=== PATIENT | female | born 1980 | race African-American/Black ===

== ENCOUNTER 2016-10-12 14:51 | Emergency (ER) | payer SELFPAY ==
[2016-10-12 15:47] LABS: Bilirubin Negative (Negative); Blood, Urine Negative (Negative); Glucose, Urine (Dipstick) Negative (Negative); Ketone, Urine Trace mg/dL (Negative); Nitrite Negative (Negative); Protein, Urine (Dipstick) 30 mg/dL (Neg-Trace); Urobilinogen 0.2 mg/dL (0.2-1.0)
[2016-10-12 16:01] LABS: Bacteria/HPF Rare-Few HPF (None Seen); RBC/HPF None Seen HPF (0-3); WBC/HPF 0-3 HPF (0-3)
[2016-10-12] MEDS ORDERED: Ondansetron ODT 4 MG TAB ONE (16:05)
--- NOTE | 2016-10-12 17:10 | ERRECORD ---
[facility] EMERGENCY RECORD HPI NAUSEA/VOMITING/DIARRHEA (20:14 JLOY) CHIEF COMPLAINT: Patient presents for evaluation of nausea, Denies vomiting, Patient presents for evaluation of diarrhea, Number of times: 'many', described as watery stools, Patient presents for evaluation of Pt with UTI 3 weeks ago that resolved with batrim. Some diarrhea with the abx but the last 3 days with increased diarrhea and cramps in the left abd every time she has diarrhea. Nausea. No other symptoms. HISTORIAN: History provided by patient. LOCATION FEMALE: Symptoms are localized, most severe in the Left abd. QUALITY: Pain is dull in nature, described as cramping. TIME COURSE: Gradual onset of symptoms, There has been no change in the patient's symptoms over time, are intermittent. ASSOCIATED WITH FEMALE: Associated with recent antibiotic use, No associated chills, Associated with diarrhea, No associated fever, No associated flank pain, No associated hematemesis, No associated hematuria, Associated with nausea, No associated inability to tolerate oral intake, No associated urinary tract infection signs or symptoms, No associated vomiting. EXACERBATED BY: Patient's condition exacerbated by nothing. RELIEVED BY: Patient's condition relieved by nothing. ROS (20:15 JLOY) CONSTITUTIONAL: Historian denies chills, denies fever. ENT: Historian denies rhinorrhea, denies sore throat. RESPIRATORY: Historian denies cough, denies shortness of breath. GI: Historian reports abdominal pain, reports diarrhea, reports nausea, denies vomiting. GENITOURINARY FEMALE: Historian denies dysuria, denies frequency, denies hematuria. MUSCULOSKELETAL: Historian denies back pain. NEUROLOGIC: Historian denies dizziness, denies headache. PAST MEDICAL HISTORY MEDICAL HISTORY: No past medical history. (15:12 MCBE) FEMALE SURGICAL HISTORY: Patient's surgical history is not relevant to the management of the case, BACK SURGERY FOR SCHOLIOSIS.REVIEWED 09/21/16. (15:12 MCBE) SOCIAL HISTORY: Patient denies alcohol use, Patient denies drug use, Patient has no smoking history.REVIEWED 09/21/16. (15:12 MCBE) NOTES: Nursing records reviewed, Agree with nursing records. (20:16 JLOY) KNOWN ALLERGIES No Known Drug Allergies NONE (Unconfirmed) &a-1R&a+25V*p+0X*j9974M*c202B*c15G*c2P*p-0X&a-25V&a+1R Name: Xavi Cabrera : 1980 F36 MedRec: [id number] AcctNum: [id number] Prepared: [facility] Oct 12, 2016 20:18 by Interface Page 1 of 3 pMD [facility] EMERGENCY RECORD CURRENT MEDICATIONS No recorded medications VITAL SIGNS (15:09 MCBE) VITAL SIGNS: BP: 114/69, Pulse: 78, Resp: 18, Temp: 97.8 (Oral), Pain: 7, O2 sat: 98 on Room Air, Time: 10/12/2016 15:09. PHYSICAL EXAM (20:16 [facility]) CONSTITUTIONAL: Vital signs reviewed, Patient appears non toxic, Patient alert and oriented to person, place and time. EYES: Eye exam included findings of eyelids normal to inspection, Pupils equally round and reactive to light, Conjunctiva normal. ENT: Mouth exam normal, mucous membranes moist. RESPIRATORY CHEST: Respiratory exam included findings of no respiratory distress, Breath sounds clear, No wheezing, No rales, No rhonchi, Chest exam included findings of chest movement symmetrical. CARDIOVASCULAR: Cardiovascular exam included findings of heart rate regular rate and rhythm, Heart sounds normal. ABDOMEN FEMALE: Abdominal exam included findings of abdomen nontender, Bowel sounds normal, Liver normal, Spleen normal, no peritoneal signs, no rigidity, no guarding, no rebound. BACK: Back exam included findings of normal inspection, range of motion normal. NEURO: Jimena coma scale 15, Neuro exam findings include patient oriented to person, place and time, Speech normal. SKIN: Skin exam included findings of skin warm, dry, and normal in color, no rash. PSYCHIATRIC: Normal affect. MEDICATION ADMINISTRATION SUMMARY Drug Name: Zofran ODT, Dose Ordered: 4 mg, Route: Oral, Status: Given, Time: 16:03 10/12/2016, Detailed record available in Medication Service section. PROBLEM LIST No recorded problems DIAGNOSIS (15:53 [facility]) FINAL: PRIMARY: Acute Gastroenteritis - presumed infectious. PRESCRIPTION (16:05 [facility]) Zofran oral: TABLET : 4 mg : ORAL : Quantity: 1 Unit: tab(s) Route: ORAL Schedule: every 6 hours PRN Dispense: 10 May substitute. Refills: No Refills . NOTES: USE NEEDED FOR NAUSEA No Refills. DISPOSITION &a-1R&a+25V*p+0X*[id number]*c202B*c15G*c2P*p-0X&a-25V&a+1R Name: Xavi Cabrera : 1980 F36 MedRec: [id number] AcctNum: [id number] Prepared: SunOct 12, 2016 20:18 by Interface Page 2 of 3 pMD [facility] EMERGENCY RECORD PATIENT: Disposition Type: Discharge, Disposition: *Discharge Home. (15:53 ESTUARDO) Patient left the department. (16:10 ROXI) Fisher: ESTUARDO=MD Francisco, Hemal DIANE=JOELLE Hand, Emerson RAMIREZ=Sabiha Best &a-1R&a+25V*p+0X*[id number]*c202B*c15G*c2P*p-0X&a-25V&a+1R Name: Xavi Cabrera : 1980 F36 MedRec: [id number] AcctNum: [id number] Prepared: SunOct 12, 2016 20:18 by Interface Page 3 of 3 pMD MTDD
--- NOTE | 2016-10-12 17:15 | PICIS ---
[facility] EMERGENCY RECORD TRIAGE (SunOct 12, 2016 15:08 MCBE) TRIAGE NOTES: diagnosed with UTI over a week ago. tramadol was given. cramps started this past week. (SunOct 12, 2016 15:08 MCBE) PATIENT: NAME: Xavi Cabrera, AGE: 36, GENDER: female, : Sun 1980, TIME OF GREET: SunOct 12, 2016 14:52, PREFERRED LANGUAGE: Polish, ETHNICITY: Not or , ECODE BILLING MAP: [facility], SSN: [id number], Zip Code: [address], KG WEIGHT: [phone], PHONE: , , , PERSON ID: [id number]. (SunOct 12, 2016 15:08 MCBE) COMPLAINT: ABDOMINAL PAIN. (SunOct 12, 2016 15:08 MCBE) ADMISSION: URGENCY: 3 Urgent, ADMISSION SOURCE: Home, TRANSPORT: CAR, BED: ER -03. (SunOct 12, 2016 15:08 MCBE) ASSESSMENT: Assessment: cramping is located in supra pubic area. denies bleeding. denies any discharge. patient reports making an appointment at [facility]. they cancelled due to doctor not available. (15:12 MCBE) IMMUNIZATIONS: Flu vaccine not up to date, Tetanus immunization up to date. (15:12 MCBE) SIRS SCORING: Heart Rate 55-109 (0), Temp range 96.8-101.1 (0), respiratory rate 12-24 (0), Mental Status altered: no (0), Infection or Suspected Infection: No. (15:12 MCBE) TRIAGE SCREENING: Patient denies suicidal ideation, Patient denies presence of domestic violence. (15:12 MCBE) PROVIDERS: TRIAGE NURSE: Sabiha Best. (SunOct 12, 2016 15:08 MCBE) PREVIOUS VISIT ALLERGIES: NONE. (SunOct 12, 2016 15:08 MCBE) NONE. (15:12 MCBE) KNOWN ALLERGIES No Known Drug Allergies NONE (Unconfirmed) CURRENT MEDICATIONS No recorded medications VITAL SIGNS (15:09 MCBE) VITAL SIGNS: BP: 114/69, Pulse: 78, Resp: 18, Temp: 97.8 (Oral), Pain: 7, O2 sat: 98 on Room Air, Time: 10/12/2016 15:09. NURSING ASSESSMENT: ABDOMEN (15:12 MCBE) CONSTITUTIONAL: Complex assessment performed, Patient arrives ambulatory, Gait steady, History obtained from patient, Patient appears comfortable, Patient cooperative, Patient alert, Oriented to person, place and time, Skin warm, Skin dry, Skin normal in color, Mucous membranes pink, Mucous membranes moist, Patient is well-groomed. PAIN: abdomen,, constant, on a scale 0-10 patient rates pain as 7. &a-1R&a+25V*p+0X*d9466H*c202B*c15G*c2P*p-0X&a-25V&a+1R Name: Xavi Cabrera : 1980 F36 MedRec: [id number] AcctNum: [id number] Prepared: [facility] Oct 12, 2016 20:24 by Interface Page 1 of 6 pMD [facility] EMERGENCY RECORD ABDOMEN: Abdomen assessment findings include abdomen symmetrical, Abdomen soft, tender, suprapubic, Bowel sound normal, no associated nausea, no associated vomiting, no associated diarrhea, no associated constipation. NURSING PROCEDURE: DISCHARGE NOTE (16:03 JPAR) DISCHARGE: Patient discharged to home, ambulating without assistance, family driving, unaccompanied, Summary of Care printed/ provided, Patient requested and was provided an electronic copy of Discharge Instructions, Transition record given to patient, Discharge instructions given to patient, Simple or moderate discharge teaching performed, Prescriptions given and instructions on side effects given, Name of prescription(s) given: Zofran, Medication reconciliation form given, Above person(s) verbalized understanding of discharge instructions and follow-up care, Patient treated and evaluated by physician. BELONGINGS: Belongings and valuables with patient at time of discharge include:, Belongings remain with patient, Valuables remain with patient. SAFETY: Side rails up, Cart/Stretcher in lowest position, Family at bedside, Call light within reach, Hospital ID band on. NURSING PROCEDURE: URINE COLLECTION (15:41 MCBE) PATIENT IDENTIFIER: Patient actively involved in identification process, Patient's identity verified by patient stating name, Patient's identity verified by patient stating date, Patient's identity verified by hospital ID bracelet. URINE COLLECTION FEMALE: Urine collected by mid-stream clean catch, Output amount (mL) 10, urine yellow in color, and clear, Specimen labeled in the presence of the patient and sent to lab, Specimen obtained for culture labeled in the presence of the patient and sent to lab. ORDER DETAILS Order Name: Test, Urine (BHCG), Status: Active, Time: 15:29 10/12/2016, User: ESTUARDO, - Ordered for: MD Singh Joshua, - Entered by: MD Singh Joshua - [facility] Oct 12, 2016 15:29, - Quantity: 1, Order Name: Urinalysis w/ Rflx Microscopic, Status: Active, Time: 15:29 10/12/2016, User: ESTUARDO, - Ordered for: MD Singh Joshua, - Entered by: MD Singh Joshua - [facility] Oct 12, 2016 15:29, - Quantity: 1. MEDICATION ADMINISTRATION SUMMARY Drug Name: Zofran ODT, Dose Ordered: 4 mg, Route: Oral, Status: Given, Time: 16:03 10/12/2016, Detailed record available in Medication &a-1R&a+25V*p+0X*k0076H*c202B*c15G*c2P*p-0X&a-25V&a+1R Name: Xavi Cabrera : 1980 F36 MedRec: [id number] AcctNum: [id number] Prepared: SunOct 12, 2016 20:24 by Interface Page 2 of 6 D [facility] EMERGENCY RECORD Service section. MEDICATION SERVICE (16:03 ESTUARDO) Zofran ODT: Order: Zofran ODT (ondansetron) - Dose: 4 mg : Oral Ordered by: Hemal Singh MD Entered by: Hemal Singh MD SunOct 12, 2016 16:05 Documented as given by: Emerson Hand RN SunOct 12, 2016 16:03 Patient, Medication, Dose, Route and Time verified prior to administration. Patient appears Awake and alert- acceptable, Correct patient, time, route, dose and medication confirmed prior to administration, Patient advised of actions and side-effects prior to administration, Allergies confirmed and medications reviewed prior to administration, Patient in position of comfort, Side rails up, Cart in lowest position, Family at bedside, Call light in reach. HPI NAUSEA/VOMITING/DIARRHEA (20:14 JL) CHIEF COMPLAINT: Patient presents for evaluation of nausea, Denies vomiting, Patient presents for evaluation of diarrhea, Number of times: 'many', described as watery stools, Patient presents for evaluation of Pt with UTI 3 weeks ago that resolved with batrim. Some diarrhea with the abx but the last 3 days with increased diarrhea and cramps in the left abd every time she has diarrhea. Nausea. No other symptoms. HISTORIAN: History provided by patient. LOCATION FEMALE: Symptoms are localized, most severe in the Left abd. QUALITY: Pain is dull in nature, described as cramping. TIME COURSE: Gradual onset of symptoms, There has been no change in the patient's symptoms over time, are intermittent. ASSOCIATED WITH FEMALE: Associated with recent antibiotic use, No associated chills, Associated with diarrhea, No associated fever, No associated flank pain, No associated hematemesis, No associated hematuria, Associated with nausea, No associated inability to tolerate oral intake, No associated urinary tract infection signs or symptoms, No associated vomiting. EXACERBATED BY: Patient's condition exacerbated by nothing. RELIEVED BY: Patient's condition relieved by nothing. ROS (20:15 JL) CONSTITUTIONAL: Historian denies chills, denies fever. ENT: Historian denies rhinorrhea, denies sore throat. RESPIRATORY: Historian denies cough, denies shortness of breath. GI: Historian reports abdominal pain, reports diarrhea, reports nausea, denies vomiting. GENITOURINARY FEMALE: Historian denies dysuria, denies frequency, denies hematuria. MUSCULOSKELETAL: Historian denies back pain. &a-1R&a+25V*p+0X*o2660P*c202B*c15G*c2P*p-0X&a-25V&a+1R Name: Xavi Cabrera : 1980 F36 MedRec: [id number] AcctNum: [id number] Prepared: [facility] Oct 12, 2016 20:24 by Interface Page 3 of 6 pMD [facility] EMERGENCY RECORD NEUROLOGIC: Historian denies dizziness, denies headache. PAST MEDICAL HISTORY MEDICAL HISTORY: No past medical history. (15:12 MCBE) FEMALE SURGICAL HISTORY: Patient's surgical history is not relevant to the management of the case, BACK SURGERY FOR SCHOLIOSIS.REVIEWED 09/21/16. (15:12 MCBE) SOCIAL HISTORY: Patient denies alcohol use, Patient denies drug use, Patient has no smoking history.REVIEWED 09/21/16. (15:12 MCBE) NOTES: Nursing records reviewed, Agree with nursing records. (20:16 JLOY) PHYSICAL EXAM (20:16 JLOY) CONSTITUTIONAL: Vital signs reviewed, Patient appears non toxic, Patient alert and oriented to person, place and time. EYES: Eye exam included findings of eyelids normal to inspection, Pupils equally round and reactive to light, Conjunctiva normal. ENT: Mouth exam normal, mucous membranes moist. RESPIRATORY CHEST: Respiratory exam included findings of no respiratory distress, Breath sounds clear, No wheezing, No rales, No rhonchi, Chest exam included findings of chest movement symmetrical. CARDIOVASCULAR: Cardiovascular exam included findings of heart rate regular rate and rhythm, Heart sounds normal. ABDOMEN FEMALE: Abdominal exam included findings of abdomen nontender, Bowel sounds normal, Liver normal, Spleen normal, no peritoneal signs, no rigidity, no guarding, no rebound. BACK: Back exam included findings of normal inspection, range of motion normal. NEURO: Jimena coma scale 15, Neuro exam findings include patient oriented to person, place and time, Speech normal. SKIN: Skin exam included findings of skin warm, dry, and normal in color, no rash. PSYCHIATRIC: Normal affect. EVENTS TRANSFER: Triage to Emergency Emergency Room -03. (Joanne Oct 12, 2016 15:08 BE) Removed from Emergency Emergency Room -03. (16:10 JPAR) PROBLEM LIST No recorded problems DIAGNOSIS (15:53 JLOY) FINAL: PRIMARY: Acute Gastroenteritis - presumed infectious. DISPOSITION PATIENT: Disposition Type: Discharge, Disposition: *Discharge Home. (15:53 JLOY) &a-1R&a+25V*p+0X*a4193N*c202B*c15G*c2P*p-0X&a-25V&a+1R Name: Xavi Cabrera Gasper : 1980 F36 MedRec: [id number] AcctNum: [id number] Prepared: SunOct 12, 2016 20:24 by Interface Page 4 of 6 pMD [facility] EMERGENCY RECORD Patient left the department. (16:10 JPAR) INSTRUCTION (15:59 JLOY) DISCHARGE: GASTROENTERITIS, VIRAL (8Y-ADULT). FOLLOWUP: Follow up with Primary Care Physician in 7-10 days. PRESCRIPTION (16:05 JLOY) Zofran oral: TABLET : 4 mg : ORAL : Quantity: 1 Unit: tab(s) Route: ORAL Schedule: every 6 hours PRN Dispense: 10 May substitute. Refills: No Refills . NOTES: USE NEEDED FOR NAUSEA No Refills. IMAGING *SUPPLY CHARGE SHEET: Image captured from scanner. (16:08 JPAR) *DISCHARGE INSTRUCTIONS RECEIPT: Image captured from scanner. (16:08 JPAR) *SUPPLY CHARGE SHEET: Image captured from scanner. (17:15 BWIS) ADMIN (20:16 JLOY) DIGITAL SIGNATURE: MD Singh Joshua. RESULTS LABORATORY: Urinalysis w/ Rflx Microscopic Collection DT: SunOct 12, 2016 15:45, Color Yellow , Range (Yellow), Clarity SL HAZY , Range (Clear), Specific Alton, Urine 1.015 , Range (1.005-1.030), pH, Urine 7.0 , Range (5.0-9.0), Leukocyte Negative , Range (Negative), Nitrite Negative , Range (Negative), *Protein, Urine (Dipstick) 30 - H mg/dL, Range (Neg-Trace), Glucose, Urine (Dipstick) Negative mg/dL, Range (Negative), *Ketone, Urine Trace - H mg/dL, Range (Negative), Urobilinogen 0.2 mg/dL, Range (0.2-1.0), Bilirubin Negative , Range (Negative), Blood, Urine Negative , Range (Negative). (15:51 JPAR) Urine Microscopic Collection DT: SunOct 12, 2016 15:45, RBC/HPF None Seen HPF, Range (0-3), WBC/HPF 0-3 HPF, Range (0-3), *Squamous Epithelial 4-6 - H HPF, Range (0-3), Bacteria/HPF Rare-Few HPF, Range (None Seen). (16:08 JPAR) Urinalysis w/ Rflx Microscopic Collection DT: SunOct 12, 2016 15:45, Color Yellow , Range (Yellow), Clarity SL HAZY , Range (Clear), Specific Al[place], Urine 1.015 , Range (1.005-1.030), pH, Urine 7.0 , Range (5.0-9.0), Leukocyte Negative , Range (Negative), Nitrite Negative , Range (Negative), *Protein, Urine (Dipstick) 30 - H mg/dL, Range (Neg-Trace), &a-1R&a+25V*p+0X*x1863F*c202B*c15G*c2P*p-0X&a-25V&a+1R Name: Xavi Cabrera : 1980 F36 MedRec: [id number] AcctNum: [id number] Prepared: SunOct 12, 2016 20:24 by Interface Page 5 of 6 pMD [facility] EMERGENCY RECORD Glucose, Urine (Dipstick) Negative mg/dL, Range (Negative), *Ketone, Urine Trace - H mg/dL, Range (Negative), Urobilinogen 0.2 mg/dL, Range (0.2-1.0), Bilirubin Negative , Range (Negative), Blood, Urine Negative , Range (Negative). (16:08 JPAR) Test, Urine (BHCG) Collection DT: SunOct 12, 2016 15:45, Test - Urine (BHCG) NEGATIVE , Range (NEGATIVE), Method of sensitivity- Indeterminant: results should be repeated, after 48 hours. Positive: results may be detected as early as 4-5 days before a first missed menses. Elimination of BHCG-, Elimination following first trimester D&C: 29-44 Days , Elimination following term : 8-24 Days , Specific [place] 1.015 , Range (1.002-1.036), A dilute urine specimen may, not contain territory service representative levels of hCG. If is still, suspected, a first morning urine specimen OR a random blood specimen should, be obtained from the patient 48-72 hours later and re-tested. , . (16:08 ROXI) Fisher: ELFEGO=ABAD Sun Bobbie JLOY=MD Francisco, Hemal DIANE=JOELLE Hand, Emerson RAMIREZ=Sabiha Best &a-1R&a+25V*p+0X*i7946V*c202B*c15G*c2P*p-0X&a-25V&a+1R Name: Xavi Cabrera : 1980 F36 MedRec: [id number] AcctNum: [id number] Prepared: Joanne Oct 12, 2016 20:24 by Interface Page 6 of 6 pMD MTDD
== END 2016-10-12 16:03 | disposition home or self-care (01) ==
LOC: NAV ERS 14:51
DX: K52.9 Noninfective gastroenteritis and colitis, unspecified (principal)
CPT/HCPCS: 81003; 81015; 81025; 99284; Q0162

== ENCOUNTER 2017-09-02 11:50 | Emergency (ER) | payer MEDICAID, SELFPAY ==
[2017-09-02 12:33] LABS: Bilirubin Negative (Negative); Blood, Urine Negative (Negative); Glucose, Urine (Dipstick) Negative (Negative); Leukocyte Negative (Negative); Nitrite Negative (Negative); Protein, Urine (Dipstick) Negative (Neg-Trace)
[2017-09-02 12:36] LABS: Clarity SL HAZY (Clear)
== END 2017-09-02 12:52 | disposition home or self-care (01) ==
LOC: NAV ERS 11:50
DX: N30.90 Cystitis, unspecified without hematuria (principal); B00.1 Herpesviral vesicular dermatitis
CPT/HCPCS: 81003; 99283

== ENCOUNTER 2017-09-11 11:32 | Emergency (ER) | payer MEDICAID | END 2017-09-11 12:34 | disposition home or self-care (01) | LOC: NAV ERS 11:32 | DX: B34.9 Viral infection, unspecified (principal) | CPT/HCPCS: 99283 ==

== ENCOUNTER 2017-09-18 19:26 | Emergency (ER) | payer MEDICAID ==
[2017-09-18] MEDS ORDERED: Ibuprofen 800 MG TAB ONE (19:39)
[2017-09-18] MEDS ORDERED: Acetaminophen 500 MG TAB ONE (19:39)
== END 2017-09-18 19:43 | disposition home or self-care (01) ==
LOC: NAV ERS 19:26
DX: J11.1 Influenza due to unidentified influenza virus with other respiratory manifestations (principal)
CPT/HCPCS: 99283

== ENCOUNTER 2018-01-10 18:37 | Emergency (ER) | payer SELFPAY | END 2018-01-10 19:30 | disposition home or self-care (01) | LOC: NAV ERS 18:37 | DX: R21 Rash and other nonspecific skin eruption (principal) | CPT/HCPCS: 99282 ==

== ENCOUNTER 2019-01-21 13:58 | Emergency (ER) | payer SELFPAY | END 2019-01-21 14:34 | disposition home or self-care (01) | LOC: NAV ERS 13:58 | DX: M79.671 Pain in right foot (principal); M79.672 Pain in left foot | CPT/HCPCS: 99283 ==

== ENCOUNTER 2019-08-24 11:17 | Emergency (ER) | payer SELFPAY ==
[2019-08-24 11:39] LABS: Bilirubin Negative (Negative); Blood, Urine Negative (Negative); Clarity Clear (Clear); Glucose, Urine (Dipstick) Negative (Negative); Leukocyte Negative (Negative); Nitrite Negative (Negative); Protein, Urine (Dipstick) Negative (Neg-Trace); Urobilinogen 0.2 mg/dL (Less than 2)
[2019-08-24 11:41] LABS: Pregnancy Test - Urine (BHCG) Negative (Negative); Pregu Control Background? CLEAR/WHITE (CLR/WHITE); Pregu Control Bar Appear? YES (CONTROL BAR)
[2019-08-24 12:23] LABS: #Basophils 0.1 thou/uL (0.0-0.2); #Eosinphils 0.1 thou/uL (0.0-0.7); #Lymphocytes 1.6 thou/uL (1.20-3.40); #Monocytes 0.3 thou/uL (0.11-0.59); #Neutrophils 3.8 thou/uL (1.40-6.50); %Basophils 0.9 % (0.0-1.0); %Eosinophils 1.4 % (0.0-10.0); %Lymphocytes 27.3 % (21.0-51.0); %Monocytes 5.1 % (0.0-10.0); %Neutrophils 65.4 % (42.0-75.0); Hemoglobin 13.1 g/dL (12.0-16.0); Mean Corpuscular HGB CONC 32.1 g/dL (32.0-36.0); Mean Corpuscular Volume 87.2 fL (78.0-98.0); Platelet Count 173 thou/uL (130-400); Red Blood Cell (RBC) Count 4.67 mill/uL (4.20-5.40); White Blood Cell (WBC) Count 5.7 thou/uL (4.8-10.8)
[2019-08-24 12:37] LABS: ALT (SGPT) 14 U/L (8-55); AST (SGOT) 18 U/L (5-34); Albumin 4.5 g/dL (3.5-5.0); Alkaline Phosphatase 60 U/L (40-110); Anion Gap 15 mmol/L (10-20); BUN (Urea Nitrogen) 11 mg/dL (7.0-18.7); Bilirubin, Total 0.3 mg/dL (0.2-1.2); Calc. Creatinine Clearance 0 mL/min (70-130); Calcium 9.2 mg/dL (7.8-10.44); Carbon Dioxide 23 mmol/L (22-29); Chloride 105 mmol/L (98-107); Estimated GFR-MDRD Greater than 90; Globulin 3.5 g/dL (2.4-3.5); Glucose 74 mg/dL (70-105); Lipase 49 U/L (8-78); Potassium 3.3 mmol/L (3.5-5.1); Sodium 140 mmol/L (136-145)
--- NOTE | 2019-08-24 13:51 | CT ---
CT OF THE ABDOMEN AND PELVIS WITH IV CONTRAST INDICATION: Right lower quadrant abdominal pain COMPARISON: Noncontrast CT the abdomen and pelvis dated September 21, 2016. FINDINGS: ABDOMEN: Lung bases: Clear Liver: No focal lesion. Gallbladder: Normal appearing. Pancreas: Normal. Adrenal glands: Normal. Spleen: Normal. Kidneys and ureters: Normal. No hydronephrosis. Vasculature: Normal. Lymph nodes:No lymphadenopathy. Free fluid in abdomen:No free fluid is evident. PELVIS: Small and large bowel: Normal Appendix:Not visualized Bladder: Partially decompressed Rectal and perirectal soft tissues:Normal. Reproductive structures: There is a heterogeneous and enlarged uterus consistent with fibroid uterus. Free fluid in pelvis: There is persistent moderate hypodensity within the cul-de-sac of Javon Lymphadenopathy pelvis: No lymphadenopathy is evident. Osseous structures: No acute osseous abnormality. No destructive osteolytic or osteoblastic lesion i s identified. There is prominent beam scattering artifact from Martin rods with the thoracolumbar spine. Soft tissues:Normal. IMPRESSION: 1. Moderate fluid still present within the cul-de-sac Javon. Recommend pelvic ultrasound for furthe r characterization. 2. Fibroid uterus
== END 2019-08-24 14:09 | disposition home or self-care (01) ==
LOC: NAV ERS 11:17
DX: D25.9 Leiomyoma of uterus, unspecified (principal); R18.8 Other ascites
CPT/HCPCS: 74177; 80053; 81003; 81025; 83690; 85025

== ENCOUNTER 2019-12-09 11:29 | Emergency (ER) | payer SELFPAY ==
[2019-12-09] MEDS ORDERED: Acetaminophen 500 MG TAB ONE (12:03)
== END 2019-12-09 12:36 | disposition home or self-care (01) ==
LOC: NAV ERS 11:29
DX: J00 Acute nasopharyngitis [common cold] (principal); M41.9 Scoliosis, unspecified
CPT/HCPCS: 87081; 87430; 87804; 99283

== ENCOUNTER 2021-02-07 15:57 | Emergency (ER) | payer SELFPAY | END 2021-02-07 16:52 | disposition home or self-care (01) | LOC: NAV ERS 15:57 | DX: M79.672 Pain in left foot (principal) ==

== ENCOUNTER 2021-08-30 23:51 | Emergency (ER) | payer SELFPAY ==
[2021-08-31] MEDS ORDERED: Ondansetron ODT 4 MG TAB ONE (00:08)
== END 2021-08-31 00:40 | disposition home or self-care (01) ==
LOC: NAV ERS 23:51
DX: K52.9 Noninfective gastroenteritis and colitis, unspecified (principal); M41.9 Scoliosis, unspecified
CPT/HCPCS: 99283; Q0162

== ENCOUNTER 2022-10-05 08:38 | Emergency (ER) | payer SELFPAY ==
[2022-10-05] MEDS ORDERED: Ondansetron ODT 4 MG TAB ONE (09:04)
== END 2022-10-05 09:45 | disposition home or self-care (01) ==
LOC: NAV ERS 08:38
DX: R11.2 Nausea with vomiting, unspecified (principal); R19.7 Diarrhea, unspecified
CPT/HCPCS: 99283; Q0162

== ENCOUNTER 2023-07-27 18:46 | Emergency (ER) | payer MEDICAID, MEDICARE, OTHER, SELFPAY ==
[2023-07-27] MEDS ORDERED: traMADol HCl 50 MG TAB ONE (19:36)
== END 2023-07-27 19:40 | disposition home or self-care (01) ==
LOC: NAV ERS 18:46
DX: K04.7 Periapical abscess without sinus (principal); K02.9 Dental caries, unspecified; M41.9 Scoliosis, unspecified
CPT/HCPCS: 99282

== ENCOUNTER 2024-02-11 14:13 | Emergency (ER) | payer OTHER, SELFPAY ==
[2024-02-11] MEDS ORDERED: Aspirin Chewable 81 MG TAB ONE (14:38)
[2024-02-11] MEDS ORDERED: guaiFENesin ER 600 MG TAB ONE (14:39)
[2024-02-11 15:16] LABS: Influenza A by NAA Not Detected (NotDetected); Influenza B by NAA Not Detected (NotDetected); SARS-CoV-2 NAA Rapid Test Not Detected (NotDetected)
== END 2024-02-11 15:30 | disposition home or self-care (01) ==
LOC: NAV ERS 14:13
DX: J20.8 Acute bronchitis due to other specified organisms (principal)
CPT/HCPCS: 71046; 93005

== ENCOUNTER 2024-08-03 14:37 | Emergency (ER) | payer SELFPAY | END 2024-08-03 15:44 | disposition home or self-care (01) | LOC: NAV ERS 14:37 | DX: S86.112A Strain of other muscle(s) and tendon(s) of posterior muscle group at lower leg level, left leg, initial encounter (principal); X50.1XXA Overexertion from prolonged static or awkward postures, initial encounter | CPT/HCPCS: 99283 ==